=== PATIENT | male | born 1945 | race Caucasian/White ===

== ENCOUNTER 2017-11-07 05:57 | Inpatient (IN) | payer OTHER, BC ==
[2017-10-17 12:09] VITALS: BMI 31.7
[2017-11-07] MEDS ORDERED: ROPIVICAINE 0.2%/MORPH PF/KETOROLAC - 51ML DISP.SYRINGE IA ONE ×2 (06:19→12:52)
[2017-11-07] MEDS ORDERED: CELECOXIB 200 MG CAPSULE PO ONE (06:19)
[2017-11-07] MEDS ORDERED: TRANEXAMIC ACID 1000 MG/10 ML VIAL IVPUSH ONE (06:19)
[2017-11-07] MEDS ORDERED: CEFAZOLIN 2 GM in DEXTROSE 5%-WATER - 50 ML IVPB ONE (06:19)
[2017-11-07] MEDS ORDERED: oxyCODONE HCL 10 MG SUSTAINED ACTING TABLET PO ONE (06:19)
[2017-11-07] MEDS ORDERED: GABAPENTIN 300 MG CAPSULE (FP) PO ONE (06:19)
[2017-11-07] MEDS ORDERED: PANTOPRAZOLE 40 MG TABLET (FP) PO ONE (06:23)
[2017-11-07] MEDS ORDERED: MIDAZOLAM HCL 2 MG/2 ML SINGLE DOSE VIAL ONE ×4 (07:13→12:03)
[2017-11-07] MEDS ORDERED: DEXAMETHASONE SOD PHOSPHATE/PF 10 MG/ML SDV ONE (07:13)
[2017-11-07] MEDS ORDERED: ROPIVACAINE HCL 0.5% 30ML VIAL ONE (07:13)
[2017-11-07] MEDS ORDERED: ONDANSETRON 4 MG/2 ML VIAL ONE (07:14)
[2017-11-07] MEDS ORDERED: ROCURONIUM BROMIDE 50 MG/5 ML VIAL ONE (07:14)
[2017-11-07] MEDS ORDERED: LIDOCAINE HCL 2% 100 MG/5 ML DISP.SYRIN ONE (07:14)
[2017-11-07] MEDS ORDERED: SUCCINYLCHOLINE CHLORIDE 200 MG/10 ML VIAL ONE (07:14)
[2017-11-07] MEDS ORDERED: DEXAMETHASONE SOD PHOSPHATE 4 MG/1 ML VIAL ONE (07:14)
[2017-11-07] MEDS ORDERED: PROPOFOL 20 ML ONE (07:14)
[2017-11-07] MEDS ORDERED: fentaNYL CITRATE 250 MCG/5 ML VIAL ONE (07:14)
[2017-11-07] MEDS ORDERED: ceFAZolin SODIUM 1 GM VIAL ONE ×2 (07:20→08:45)
[2017-11-07] MEDS ORDERED: VANCOMYCIN 1,000 MG VIAL (RESTRICTED TO ID ONLY) ONE (07:20)
[2017-11-07 07:36] LABS: INR 1.12 (0.82-1.09); PROTHROMBIN TIME (PATIENT) 12.5 SEC (10.2-13.0)
--- NOTE | 2017-11-07 07:52 | HP ---
History & Physical Update - History History: No Change - Physical Physical: No Change - Assessment Assessment: No Change - Plan Plan: No Change (no interval changes since last visit.)
[2017-11-07] MEDS ORDERED: BUPIVACAINE HCL/PF (5 MG/ML) 30 ML VIAL IJ ONE (08:03)
[2017-11-07] MEDS ORDERED: TRANEXAMIC ACID 1000 MG/10 ML VIAL ONE ×2 (08:45→12:12)
[2017-11-07] MEDS ORDERED: PHENYLEPHRINE HCL 10 MG/1 ML SINGLE DOSE VIAL ONE ×2 (08:47)
[2017-11-07] MEDS ORDERED: TRANEXAMIC ACID 1000 MG/10 ML VIAL IVPB ONE ×2 (09:40→12:22)
[2017-11-07] MEDS ORDERED: VANCOMYCIN 1,000 MG VIAL (RESTRICTED TO ID ONLY) IVPB ONE ×2 (09:42→12:22)
[2017-11-07] MEDS ORDERED: ONDANSETRON 4 MG/2 ML VIAL IVPUSH PRN ×2 (13:30→14:11)
[2017-11-07] MEDS ORDERED: LACTATED RINGERS SOLUTION 1,000 ML IV SCH ×2 (13:30→14:15)
[2017-11-07] MEDS ORDERED: oxyCODONE HCL 5 MG TABLET PO PRN (13:31)
--- NOTE | 2017-11-07 13:38 | OP ---
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
--- NOTE | 2017-11-07 13:41 | SURG ---
Surgery Subacute Nurse Note Subacute Nurse: Jacklyn Lui PA-C Date of Service: 11/07/17 Diagnosis: Failure of left hip hemiarthroplasty Procedure: Revision of left hip hemiarthroplasty and conversion to total arthroplasty I was present for the entirety of the operative procedure. For further detail, please refer to operative report. Visit type - Case Type Case Type: Scheduled Admission - Emergency Emergency Visit: No - New patient This patient is new to me today: Yes Date on this admission: 11/07/17
[2017-11-07] MEDS ORDERED: ACETAMINOPHEN INJECTION 100 ML IVPB ONE (13:42)
[2017-11-07] MEDS: ACETAMINOPHEN 1000 MG/100 ML VIAL (NON FORMULARY) IVPB ONE ×2 (14:00→15:27)
--- NOTE | 2017-11-07 14:10 | OP ---
Operative Note - Note: Operative Date: 11/07/17 Pre-Operative Diagnosis: Left hip painful hemiarthroplasty / loose stem Operation: Left partial hip replacement revision to total hip replacement Post-Operative Diagnosis: Same as Pre-op Surgeon: Raghav Rouse [employer] Trainer: Jacklyn Lui Anesthesia: Spinal Estimated Blood Loss (mls): 500
[2017-11-07] MEDS ORDERED: MAGNESIUM HYDROX 2400MG/30ML ORAL SUSPENSION 30 ML CUP PO PRN (14:11)
[2017-11-07] MEDS ORDERED: MAG HYDROX/AL HYDROX/SIMETH 30 ML UNIT-DOSE CUP PO PRN (14:11)
[2017-11-07] MEDS ORDERED: ALBUTEROL SO4 18 GM HFA INHALER IH PRN (14:18)
[2017-11-07] MEDS ORDERED: PATIENT'S OWN MEDICATION (NON-FORMULARY) (Alfuzosin Hcl [Uroxatral] 10 MG) PO SCH (14:30)
[2017-11-07] MEDS: KETOROLAC TROMETHAMINE 30 MG/1 ML VIAL IVPUSH SCH ×4 (14:32→21:03)
[2017-11-07] MEDS ORDERED: KETOROLAC TROMETHAMINE 30 MG/1 ML VIAL ONE (14:33)
[2017-11-07] MEDS: traMADol HCL 50 MG TABLET PO SCH ×2 (16:35→21:56)
[2017-11-07] MEDS: CEFAZOLIN 2 GM/D5W 2 GM/50 ML ML IVPB SCH (17:20)
[2017-11-07] MEDS: WARFARIN NA 5 MG TABLET (UD) PO SCH (18:06)
[2017-11-07] MEDS: ACETAMINOPHEN 325 MG TABLET (FP) PO SCH (21:03)
[2017-11-07] MEDS: FERROUS SO4 325 MG TABLET (FP) PO SCH (21:54)
[2017-11-07] MEDS: ATORVASTATIN CA 40 MG TABLET (FP) PO SCH (21:54)
[2017-11-07] MEDS: GABAPENTIN 300 MG CAPSULE (FP) PO SCH (21:54)
[2017-11-07] MEDS: CELECOXIB 200 MG CAPSULE PO SCH (21:54)
[2017-11-07] MEDS: oxyCODONE HCL 10 MG SUSTAINED ACTING TABLET PO SCH (21:55)
[2017-11-07] MEDS: SENNOSIDES/DOCUSATE COMBO (SENNA PLUS) TABLET (UD) PO SCH (21:55)
[2017-11-07] MEDS: ASCORBIC ACID 500 MG TABLET (FP) PO SCH (21:56)
[2017-11-07] MEDS: LATANOPROST 0.005% OPHTH SOLN 2.5ML BOTTLE OS SCH (23:50)
[2017-11-08] MEDS: CEFAZOLIN 2 GM/D5W 2 GM/50 ML ML IVPB SCH (01:10)
[2017-11-08] MEDS: ACETAMINOPHEN 325 MG TABLET (FP) PO SCH ×4 (01:10→20:33)
[2017-11-08] MEDS: KETOROLAC TROMETHAMINE 30 MG/1 ML VIAL IVPUSH SCH ×3 (02:08→10:54)
[2017-11-08] MEDS: traMADol HCL 50 MG TABLET PO SCH ×4 (04:20→22:11)
[2017-11-08] MEDS: oxyCODONE HCL 5 MG TABLET PO PRN ×3 (06:35→17:58)
[2017-11-08 08:44] LABS: HEMOGLOBIN 11.6 GM/dl (11.7-16.9)
[2017-11-08 08:51] LABS: ANION GAP 5 (8-16); BLOOD UREA NITROGEN 27 mg/dl (7-18); CALCIUM 8.1 mg/dl (8.4-10.2); CHLORIDE 105 mmol/L (98-107); CO2 26 mmol/L (22-28); CREATININE 1.2 mg/dl (0.6-1.3); GLUCOSE,RANDOM 133 mg/dl (74-106); POTASSIUM 3.9 mmol/L (3.5-5.1); SODIUM 136 mmol/L (136-145)
[2017-11-08 09:01] LABS: HEMATOCRIT 34.2 % (35.4-49); MCH 28.5 pg (25.7-33.7); MEAN CELL VOLUME 83.7 fl (80-96); MEAN PLT VOLUME 9.3 fl (7.5-11.1); PLATELET COUNT 204 K/MM3 (134-434); RBC 4.08 M/mm3 (4.00-5.60); RDW 13.4 % (11.9-15.9); WHITE BLOOD COUNT 15.3 K/mm3 (4.0-10.8)
[2017-11-08] MEDS: PANTOPRAZOLE 40 MG TABLET (FP) PO SCH (10:00)
[2017-11-08] MEDS ORDERED: POTASSIUM PO SCH (10:00)
[2017-11-08] MEDS ORDERED: TRAVOPROST OS SCH (10:00)
[2017-11-08] MEDS: SERTRALINE HCL 50 MG TABLET (FP) PO SCH (10:49)
[2017-11-08] MEDS: CELECOXIB 200 MG CAPSULE PO SCH ×2 (10:50→22:12)
[2017-11-08] MEDS: SENNOSIDES/DOCUSATE COMBO (SENNA PLUS) TABLET (UD) PO SCH ×2 (10:50→22:11)
[2017-11-08] MEDS: FERROUS SO4 325 MG TABLET (FP) PO SCH ×2 (10:50→22:11)
[2017-11-08] MEDS: ASCORBIC ACID 500 MG TABLET (FP) PO SCH ×2 (10:51→22:11)
[2017-11-08] MEDS: GABAPENTIN 300 MG CAPSULE (FP) PO SCH ×2 (10:53→22:10)
[2017-11-08] MEDS: oxyCODONE HCL 10 MG SUSTAINED ACTING TABLET PO SCH ×2 (10:53→22:11)
[2017-11-08] MEDS: MULTIVITAMINS (DAILY MVI) TABLET (FP) PO SCH (10:55)
--- NOTE | 2017-11-08 12:27 | PN ---
Progress Note (short form) - Note Progress Note: Post op day#1.S/p Revision of left total hip replacement under spinal anesthesia uneventful.Patient had lumber plexus and sciatic N Block for post op pain and c/o pain score 4-5/10 for which he is on medication.No any anesthesia related problem.Patient DC from the anesthesia care.
[2017-11-08] MEDS: WARFARIN NA 5 MG TABLET (UD) PO SCH (17:55)
[2017-11-08] MEDS ORDERED: PT OWN MED DRAWER 7, Y5N ONE (21:25)
[2017-11-08] MEDS: LATANOPROST 0.005% OPHTH SOLN 2.5ML BOTTLE OS SCH (22:11)
[2017-11-08] MEDS: ATORVASTATIN CA 40 MG TABLET (FP) PO SCH (22:11)
--- NOTE | 2017-11-08 23:27 | PN ---
Progress Note (short form) - Note Progress Note: Pt seen and examined. Doing well. Pain controlled. Walked 660+ feet today. Afebrile Selected Entries 11/08/17 11/08/17 11/08/17 14:14 19:40 20:30 Temperature 98.0 F 97.7 F Pulse Rate 92 H 114 H Respiratory 18 18 Rate Blood Pressure 97/57 123/70 O2 Sat by Pulse 96 97 Oximetry (%) Laboratory Tests 11/07/17 11/08/17 11/08/17 06:50 07:49 07:49 WBC 15.3 H Hgb 11.6 L Hct 34.2 L Plt Count 204 PT with INR 12.5 INR 1.12 Sodium 136 Potassium 3.9 Chloride 105 Carbon Dioxide 26 Anion Gap 5 L BUN 27 H Creatinine 1.2 Random Glucose 133 H Calcium 8.1 L Gen: NAD LLE: c/d/i, NVID A/P 72yo male POD#1 s/p L hip revision 1. PT/OOB - WBAT LLE 2. D/C in AM after PT - f/u in office in 10-14 days. 3. PT WILL NEED INR MONITORING AT HOME BY [facility] - HE RESTARTED COUMADIN AFTER SURGERY. THE INR SHOULD BE CHECKED AGAIN THIS TUESDAY AND THEN TWICE WEEKLY UNTIL IN THE THERAPEUTIC RANGE, THEN WEEKLY.
--- NOTE | 2017-11-08 23:28 | PN ---
Progress Note (short form) - Note Progress Note: PT WILL NEED INR MONITORING AT HOME BY [facility] - HE RESTARTED COUMADIN AFTER SURGERY. THE INR SHOULD BE CHECKED AGAIN THIS TUESDAY AND THEN TWICE WEEKLY UNTIL IN THE THERAPEUTIC RANGE, THEN WEEKLY.
--- NOTE | 2017-11-08 23:29 | DS ---
Physical Examination Vital Signs: Vital Signs Temperature 97.7 F 11/08/17 23:21 Pulse Rate 112 H 11/08/17 23:21 Respiratory Rate 18 11/08/17 23:21 Blood Pressure 135/85 11/08/17 23:21 O2 Sat by Pulse Oximetry (%) 96 11/08/17 23:21 Labs: CBC, BMP 11/08/17 07:49 11/08/17 07:49 Discharge Summary Reason For Visit: HISTORY OF HIP REPLACEMENT , HIP PAIN Current Active Problems Loosening of prosthetic hip (Acute) Procedures: Principal: Left hip replacement revision Hospital Course: Admitted for elective surgery. Procedure performed without complications. Pt received postoperative antibiotic prophylaxis and DVT ppx. Ambulated with physical therapy. Stable for discharge home with outpatient followup. Condition: Stable - Instructions Diet, Activity, Other Instructions: Dr Rouse - Hip Replacement Instructions Keep the Aquacel dressing on until removed by Dr. Rouse in 10-14 days - it is antibacterial and waterproof and you can shower with it on. Call the office for a follow-up appointment with Dr. Rouse in 10-14 days. Take one Pantoprazole 40mg daily for 6 weeks to protect against heartburn and ulcers. Take a multivitamin, extra vitamin C supplement, and stool softener daily. Take Cephalexin (an antibiotic) 3x/day for 10 days to protect against wound infection while the skin incision heals. RESUME TAKING YOUR HOME DOSE OF WARFARIN. THE VISITING NURSE WILL CHECK YOUR INR. PLEASE CONTACT YOUR PRIMARY CARE DOCTOR IF YOUR WARFARIN DOSE NEEDS TO BE ADJUSTED BASED ON THE INR RESULTS. For pain: *Mild pain (1-3/10): Take 1 Tramadol tablet every 4 hours as needed. Moderate pain (4-6/10): Take 1 Tramadol tablet and 1 Percocet tablet every 4 hours as needed. Severe pain (7-10/10): Take 1 Tramadol tablet and 2 Percocet tablets every 4 hours as needed. Activity: You can put as much weight on the operative leg as you want. For the first 6 weeks, all you need to do is walk around the house, go up/down stairs, and sit down/get up. After 6 weeks when everything is healed (and bone has grown into the implant) you will be sent for more intensive outpatient physical therapy. Always use a walker or cane for balance and to prevent falls. Disposition: [facility]HOME [facility]ALTH CARE - Home Medications Comprehensive Discharge Medication List: Ambulatory Orders Alfuzosin HCl [Uroxatral] 10 mg PO ASDIR 12/13/12 Ascorbic Acid [Vitamin C] 500 mg PO DAILY 12/13/12 Atorvastatin Ca [Lipitor] 40 mg PO HS 12/13/12 Sertraline HCl [Zoloft -] 200 mg PO DAILY 12/13/12 Travoprost (Benzalkonium) [Travatan 0.004% Eye Drop] 2.5 ml OS DAILY 12/13/12 Warfarin Na [Coumadin] 4.5 mg PO DAILY 12/13/12 Albuterol Sulfate [Proventil HFA Inhaler -] 1 - 2 inh PO DAILY PRN 06/11/15 Ferrous Sulfate 325 mg PO DAILY 06/11/15 Psyllium Husk [Fiber] 0.52 gm PO DAILY 06/11/15 Azelastine/Fluticasone [Dymista Nasal [place]] 23 gm NS BID 06/12/15 Calcium Carbonate/Vitamin D3 [Calcium 600-Vit D3 800 Caplet] 1 each PO BID 10/18 Cholecalciferol (Vitamin D3) [Vitamin D3] 3,000 unit PO DAILY 10/18/17 Metoprolol Succinate 100 mg PO BID 11/07/17 Ascorbic Acid [Vitamin C -] 500 mg PO BID tablet 11/08/17 Cephalexin Monohydrate [Keflex -] 500 mg PO TID #30 capsule 11/08/17 Multivitamins [Multivit ([facility] Formulary)] 1 tab PO DAILY tab 11/08/17 Oxycodone HCl/Acetaminophen [Percocet 5-325 mg Tablet] 1 - 2 tab PO Q4H PRN #60 tablet MDD 8 11/08/17 Pantoprazole Sodium [Protonix -] 40 mg PO DAILY #40 tablet.ec 11/08/17 Potassium [Potassium] 10 mg PO DAILY tab 11/08/17 Sennosides/Docusate Sodium [Pericolace -] 2 tablet PO BID tablet 11/08/17 traMADol HCL [Ultram -] 50 mg PO Q4H PRN #90 tablet MDD 6 11/08/17
[2017-11-09] MEDS: traMADol HCL 50 MG TABLET PO SCH ×2 (04:00→09:34)
[2017-11-09] MEDS: ACETAMINOPHEN 325 MG TABLET (FP) PO SCH ×2 (04:00→09:00)
[2017-11-09 06:35] VITALS: BP 117/71; PULSE 116; TEMP 98.3
[2017-11-09] MEDS ORDERED: PT OWN MED DRAWER 7, Y5N ONE (09:28)
[2017-11-09] MEDS: GABAPENTIN 300 MG CAPSULE (FP) PO SCH (09:35)
[2017-11-09] MEDS: ASCORBIC ACID 500 MG TABLET (FP) PO SCH (09:35)
[2017-11-09] MEDS: MULTIVITAMINS (DAILY MVI) TABLET (FP) PO SCH (09:35)
[2017-11-09 09:36] LABS: HEMATOCRIT 30.8 % (35.4-49); HEMOGLOBIN 10.9 GM/dl (11.7-16.9); MCH 29.4 pg (25.7-33.7); MCHC 35.3 g/dl (32.0-35.9); MEAN CELL VOLUME 83.4 fl (80-96); MEAN PLT VOLUME 8.9 fl (7.5-11.1); PLATELET COUNT 161 K/MM3 (134-434); RBC 3.69 M/mm3 (4.00-5.60); RDW 13.5 % (11.9-15.9)
[2017-11-09] MEDS: PANTOPRAZOLE 40 MG TABLET (FP) PO SCH (09:36)
[2017-11-09] MEDS: CELECOXIB 200 MG CAPSULE PO SCH (09:36)
[2017-11-09] MEDS: SENNOSIDES/DOCUSATE COMBO (SENNA PLUS) TABLET (UD) PO SCH (09:36)
[2017-11-09] MEDS: SERTRALINE HCL 50 MG TABLET (FP) PO SCH (09:37)
[2017-11-09] MEDS: FERROUS SO4 325 MG TABLET (FP) PO SCH (09:37)
[2017-11-09] MEDS: oxyCODONE HCL 10 MG SUSTAINED ACTING TABLET PO SCH (09:38)
[2017-11-09 09:58] LABS: INR 1.59 (0.82-1.09); PROTHROMBIN TIME (PATIENT) 17.6 SEC (10.2-13.0)
--- NOTE | 2017-11-09 16:12 | PATH ---
Surgical Pathology Report Patient Name: CAROLINE GARCIA Med. Rec. #: [id number] /Age/Gender: 1945 (Age: 72) / M Account: [id number] Location: [facility], 1928–1983 MED-SURG Taken: 11/07/2017 Received: 11/07/2017 Reported: 11/09/2017 Physicians: Raghav Rouse M.D. Specimen(s) Received LEFT HIP EXPLANTED HARDWARE AND CEMENT Clinical History Failed left total hip replacement Final Diagnosis HARDWARE, LEFT HIP, EXPLANT: HARDWARE AND CEMENT, DESCRIBED (GROSS EXAMINATION ONLY). Electronically Signed Jacklyn Silva M.D. Gross Description Received fresh labeled "left hip explanted hardware," are 2 haddad metallic portions of hardware, consistent with a prosthetic hip. The specimens measure 15.5 and 4.7 cm in greatest dimension. Also received within the same container is a 9.5 x 1.8 x 1.5 cm portion of hard cement. No sections are submitted, gross only. 11/08/2017 saudi11/08/2017
== END 2017-11-09 11:31 | disposition home health service (06) | DRG 468 ==
LOC: FM/S 05:57
PROVIDERS: ADMIT Student in an Organized Health Care Education/Training Program; ATTEND Student in an Organized Health Care Education/Training Program
PROC: 0SPB0JZ Removal of Synthetic Substitute from Left Hip Joint, Open Approach (ICD-10-PCS; 2017-11-07)
PROC: 0SRB0J9 Replacement of Left Hip Joint with Synthetic Substitute, Cemented, Open Approach (ICD-10-PCS; principal; 2017-11-07 19:15)
DX: T84.031A Mechanical loosening of internal left hip prosthetic joint, initial encounter (principal); Y83.8 Other surgical procedures as the cause of abnormal reaction of the patient, or of later complication, without mention of misadventure at the time of the procedure; Y92.89 Other specified places as the place of occurrence of the external cause; D64.9 Anemia, unspecified
CPT/HCPCS: 36415; 73502-TC-LT-FY; 80048; 85027; 85610; 88300-TC; 94010; 94760; 97116-GP; 97162-GP; J0131